=== PATIENT | male | born 1945 | race Caucasian/White ===

== ENCOUNTER → 2016-08-04 | Day surgery (SDC) | payer OTHER, MEDICARE ==
[2016-07-17 08:56] VITALS: Ht 180.3 cm; Wt 101.4 kg
[~2016-08-04] VITALS: Ht 180.3 cm; Wt 101.4 kg
[~2016-08-04] MED LIST: 500ML BSS 0.3ML EPI 1:1000PF IRRIG ONE; ACETAMINOPHEN 325 MG TAB PO PRN; AMVISC PLUS 0.8ML SYRINGE INT OCU ONE; ASPCH81X PO; ATROPINE SULFATE 0.1 MG/ML 5ML SYR IV PRN; B-COTAB18 PO; BROM0.07 OPR; BSS FLUSH ONE; CHOL2000 PO; CLOP1TAB15 PO; COEN100C11 PO; EpHEDrine SULFATE INJ 50 MG/ML AMP IV PRN; EpINEphrine INJ 1MG/ML AMP 1 MG/ML AMP ONE; FENTANYL CITRATE INJ 50 MCG/1 ML 2 ML VIAL IV PRN; FLUMAZENIL 0.1 MG/1 ML 10 ML VIAL IV PRN; HYDROmorphone INJ 2 MG/ML SYR/VIAL IV PRN; ISS/10 PO; LABETALOL HCL IV 5 MG/ML 20ML IV PRN; LACTATED RINGER'S 1000ML 500 ML IV SCH; LEVO100T7 PO; LIDOCAINE 3.5% OPH GEL PER APPLICATION CHARGE ONE; LIDOCAINE HCL 1% MPF 2 ML VIAL ONE; MAGN1CAP2 PO; MEPERIDINE HCL 25 MG/ML CARP IV PRN; METO-217 PO; MIDAZOLAM HCL 1 MG/ML 2ML VIAL ONE; MULT-506 PO; NALOXONE HCL 0.4 MG/1 ML VIAL/CARP IV PRN; NTRGSL/4 UT; OCUCOAT 1 ML SOLN IO ONE; OMEG12006 PO; ONDANSETRON INJ 2 MG/ML 2 ML VIAL IV PRN; PHENYLEPHRINE 100MCG/ML 5ML SYR IV PRN; PHENYLEPHRINE HCL 10% OP SOLN PER DROP CHARGE OPR SCH; POVIDONE-IODINE OP SOLN 30 ML BTL ONE; PRED1SUS17 OPR; PROPARACAINE 0.5% OP SOLN PER DROP CHARGE OPR SCH; TOBRAMYCIN/DEXAMETHASONE OPH OINT PER APPLN CHARGE ONE; VITACAP36 PO
[2016-08-04] MEDS: PHENYLEPHRINE HCL 2.5% OP SOLN PER DROP CHARGE OPR SCH ×2 (06:41→06:52)
[2016-08-04] MEDS: TROPICAMIDE 1% OP SOLN PER DROP CHARGE OPR SCH ×2 (06:48→06:53)
[2016-08-04] MEDS: CYCLOPENTOLATE HCL 1% OP SOLN PER DROP CHARGE OPR SCH ×2 (06:49→06:54)
[2016-08-04] MEDS: KETOROLAC 0.5% OP SOLN PER DROP CHARGE OPR SCH ×2 (06:50→06:55)
[2016-08-04] MEDS: GATIFLOXACIN OP SOLN PER DROP CHARGE OPR SCH ×2 (06:51→07:01)
--- NOTE | 2016-08-04 06:55 | History & Physical Bridge - [place] ---
H&P Re-Evaluation Bridge Note: I have examined the patient, reviewed the History & Physical and in the interval since the performance of the History & Physical I have noted the following changes of clinical significance: No changes noted
[2016-08-04 07:44] VITALS: TEMP 36.8
--- NOTE | 2016-08-04 07:45 | Discharge Instructions-SurgCtr ---
Discharge Instructions Visit Reason for Visit: Cataract Right Eye Discharge Discharge Diagnosis / Problem: cataract Discharge Goals Goal(s): Improve function Activity Recommendations Activity Limitations: per Instructions/Follow-up section Anesthesia . Post Anesthesia Instructions: If you have had General Anesthesia or IV Sedation: * Do not drive today. * Resume driving when surgeon permits. * Do not make important decisions or sign legal documents today. * Call surgeon for: 1. Temperature elevations greater than 101 degrees F. 2. Uncontrollable pain. 3. Excessive bleeding. 4. Persistent nausea and vomiting. 5. Medication intolerance (nausea, vomiting or rash). * For nausea and vomiting use only clear liquids such as: tea, soda, bouillon until nausea subsides, then gradually increase diet as tolerated. * If you have any concerns or questions, call your surgeon's office. If physician is unavailable and it is an emergency, call 911 or go to the nearest emergency room. . Instructions / Follow-Up Instructions / Follow-Up ACTIVITY RECOMMENDATIONS: * No strenuous lifting, jogging or running for 4 days * No swimming or yard work for 1 week. * Limited bending is permitted, such as putting on shoes. RETURN TO SCHOOL/WORK: No work until seen by physician in office. MEDICATIONS: Resume previous medications unless instructed otherwise by your surgeon. This includes eye drops for glaucoma. Zymaxid/Gatifloxacin (clemente cap) - one drop every 2 hours until bedtime Nevanac/Ilevro/Prolensa/Ketorolac (mckeon cap) - one drop every 4 hours until bedtime Prednisolone (white/pink cap, SHAKE WELL) - one drop every 2 hours until bedtime Starting tomorrow - all 3 drops every 4 hours until seen in the office Optive drops - as needed for discomfort SPECIAL CARE INSTRUCTIONS: * Wear eyeshield when sleeping, for four nights. * You may wear your own glasses or sunglasses while awake. * You may read or watch TV * You may shower and wash your face, but be gentle around the eye and pat dry. * Blurry vision and mild irritation are normal. * Call office if pain is more severe or vision becomes dark at . FOLLOW UP VISIT: Follow-up with Dr Hartmann tomorrow. Diet Recommendations Home Diet: resume previous diet Pending Studies Studies pending at discharge: no Medical Emergencies . Who to Call and When: Medical Emergencies: If at any time you feel your situation is an emergency, please call 911 immediately. . Non-Emergent Contact Non-Emergency issues call your: Wind Instrument Repairer . . "Provider Documentation" section prepared by Bhavin Hartmann.
--- NOTE | 2016-08-04 07:45 | [facility] Operative Report ---
Operative Report 1. PREOPERATIVE DIAGNOSIS: Cataract of the right eye. 2. POSTOPERATIVE DIAGNOSIS: Same. 3. PROCEDURE: Phacoemulsification with intraocular lens implantation of the right eye. SURGEON: Dr. Bhavin Hartmann. ANESTHESIA: Topical Lidocaine gel, 1% Non- Preserved intracameral Lidocaine, and monitored intravenous sedation. INDICATIONS FOR THE PROCEDURE: The patient is a 70 - year-old male with a history of cataract of the right eye causing significant visual impairment. The details of the proposed procedure were explained to the patient who asked appropriate questions and following discussion of all risks, benefits and alternatives agreed to have the procedure done. 4. OPERATION AND FINDINGS: DESCRIPTION OF PROCEDURE: After informed consent was obtained, the patient was brought to the Operating Room at the [facility]. The patient was placed in a supine position and then the right eye was prepped and draped in the usual sterile fashion for intraocular surgery. A drop of topical Lidocaine gel was placed in the operative eye. A wire lid speculum was then placed in the fornices. A corneal paracentesis was then created temporally. The Non-Preserved Lidocaine was then instilled into the anterior chamber. The anterior chamber was then pressurized with viscoelastic. A 2.0 mm clear corneal incision was then created temporally. A cystotome was inserted into the anterior chamber and used to create a tear in the anterior lens capsule. This capsular tear was then used to create a small flap and the flap was dragged in a counterclockwise direction in order to create a continuous curvilinear capsulorrhexis. Hydrodissection was accomplished with balanced salt solution. Phacoemulsification of the lens nucleus was then performed in a standard [id number] technique. The phaco time was 22 seconds with an average power of 7 %. The remaining cortical material was removed using irrigation aspiration. The capsular bag was then filled with viscoelastic. A Bausch & Lomb MI60L +18.5 diopters lens was then loaded into the injector and injected into the capsular bag. The remaining viscoelastic was removed with the irrigation aspiration handpiece. The wound was hydrated and then checked and found to be watertight. The intraocular pressure was checked and found to be adequate. The wire lid speculum was removed and the patient's face was cleaned and dried. TobraDex ointment was placed in the inferior fornix. The patient was discharged to the Recovery Room having tolerated the procedure well. There were no complications. The patient will be seen tomorrow in the office for follow-up. I attest to the content of the Intraoperative Record and any orders documented therein. Any exceptions are noted below.
--- NOTE | 2016-08-04 08:03 | Anesthesia Progress Nt - [facility] ---
Anesthesia Post Op Note Date & Time Aug 04, 2016 at 08:03 Vital Signs Pain Intensity: 0 Vital Signs Past 12 Hours Date Time Temp Pulse Resp B/P Pulse Ox O2 Delivery O2 Flow Rate FiO2 08/04/16 07:44 36.8 58 16 118/76 96 Room Air 08/04/16 06:33 36.5 56 16 103/66 96 Room Air Notes Mental Status: alert / awake / arousable, participated in evaluation Pt Amnestic to Procedure: Yes Nausea / Vomiting: adequately controlled Pain: adequately controlled Airway Patency, RR, SpO2: stable & adequate BP & HR: stable & adequate Hydration State: stable & adequate Anesthetic Complications: no major complications apparent
[2016-08-04 08:15] VITALS: BP 120/77; PULSE 55; O2SAT 96
== END | disposition home or self-care (01) ==
LOC: X.SURG 06:21
PROVIDERS: ATTEND Ophthalmology
DX: H26.9 Unspecified cataract (principal); Z95.1 Presence of aortocoronary bypass graft; C44.91 Basal cell carcinoma of skin, unspecified

== ENCOUNTER → 2016-09-08 | Day surgery (SDC) | payer OTHER, MEDICARE ==
[2016-08-20 12:05] VITALS: Ht 180.3 cm; Wt 101.4 kg
[~2016-09-08] VITALS: Ht 180.3 cm; Wt 101.4 kg
[~2016-09-08] MED LIST changes: +PHENYLEPHRINE HCL 10% OP SOLN PER DROP CHARGE OPL SCH; -PHENYLEPHRINE HCL 10% OP SOLN PER DROP CHARGE OPR SCH; +PROPARACAINE 0.5% OP SOLN PER DROP CHARGE OPL SCH; -PROPARACAINE 0.5% OP SOLN PER DROP CHARGE OPR SCH
[2016-09-08] MEDS: PHENYLEPHRINE HCL 2.5% OP SOLN PER DROP CHARGE OPL SCH ×2 (06:46→07:11)
[2016-09-08] MEDS: TROPICAMIDE 1% OP SOLN PER DROP CHARGE OPL SCH ×2 (06:47→07:12)
[2016-09-08] MEDS: CYCLOPENTOLATE HCL 1% OP SOLN PER DROP CHARGE OPL SCH ×2 (06:48→07:13)
[2016-09-08] MEDS: KETOROLAC 0.5% OP SOLN PER DROP CHARGE OPL SCH ×2 (06:49→07:14)
[2016-09-08] MEDS: GATIFLOXACIN OP SOLN PER DROP CHARGE OPL SCH ×2 (06:50→07:15)
--- NOTE | 2016-09-08 07:00 | History & Physical Bridge - [place] ---
H&P Re-Evaluation Bridge Note: I have examined the patient, reviewed the History & Physical and in the interval since the performance of the History & Physical I have noted the following changes of clinical significance: Diagnosis: Left Cataract Procedure: Left Cataract Removal with Lens Implant No changes noted
--- NOTE | 2016-09-08 07:49 | Discharge Instructions-SurgCtr ---
Discharge Instructions Date of Service Sep 08, 2016. Visit Reason for Visit: Cataract Left Eye Discharge Discharge Diagnosis / Problem: cataract Discharge Goals Goal(s): Improve function Activity Recommendations Activity Limitations: per Instructions/Follow-up section Anesthesia . Post Anesthesia Instructions: If you have had General Anesthesia or IV Sedation: * Do not drive today. * Resume driving when surgeon permits. * Do not make important decisions or sign legal documents today. * Call surgeon for: 1. Temperature elevations greater than 101 degrees F. 2. Uncontrollable pain. 3. Excessive bleeding. 4. Persistent nausea and vomiting. 5. Medication intolerance (nausea, vomiting or rash). * For nausea and vomiting use only clear liquids such as: tea, soda, bouillon until nausea subsides, then gradually increase diet as tolerated. * If you have any concerns or questions, call your surgeon's office. If physician is unavailable and it is an emergency, call 911 or go to the nearest emergency room. . Instructions / Follow-Up Instructions / Follow-Up ACTIVITY RECOMMENDATIONS: * No strenuous lifting, jogging or running for 4 days * No swimming or yard work for 1 week. * Limited bending is permitted, such as putting on shoes. RETURN TO SCHOOL/WORK: No work until seen by physician in office. MEDICATIONS: Resume previous medications unless instructed otherwise by your surgeon. This includes eye drops for glaucoma. Zymaxid/Gatifloxacin (clemente cap) - one drop every 2 hours until bedtime Nevanac/Ilevro/Prolensa/Ketorolac (mckeon cap) - one drop every 4 hours until bedtime Prednisolone (white/pink cap, SHAKE WELL) - one drop every 2 hours until bedtime Starting tomorrow - all 3 drops every 4 hours until seen in the office Optive drops - as needed for discomfort SPECIAL CARE INSTRUCTIONS: * Wear eyeshield when sleeping, for four nights. * You may wear your own glasses or sunglasses while awake. * You may read or watch TV * You may shower and wash your face, but be gentle around the eye and pat dry. * Blurry vision and mild irritation are normal. * Call office if pain is more severe or vision becomes dark at . FOLLOW UP VISIT: Follow-up with Dr Hartmann tomorrow. Diet Recommendations Home Diet: resume previous diet Procedures Procedures Performed: Left Cataract Phacoemulsification With Intraocular Lens Implant Pending Studies Studies pending at discharge: no Medical Emergencies . Who to Call and When: Medical Emergencies: If at any time you feel your situation is an emergency, please call 911 immediately. . Non-Emergent Contact Non-Emergency issues call your: Communications Coordinator . . "Provider Documentation" section prepared by Bhavin Hartmann.
--- NOTE | 2016-09-08 07:50 | [facility] Operative Report ---
Operative Report Date of Service Sep 08, 2016. Operative Report 1. PREOPERATIVE DIAGNOSIS: Cataract of the left eye. 2. POSTOPERATIVE DIAGNOSIS: Same. 3. PROCEDURE: Phacoemulsification with intraocular lens implantation of the left eye. SURGEON: Dr. Bhavin Hartmann. ANESTHESIA: Topical Lidocaine gel, 1% Non- Preserved intracameral Lidocaine, and monitored intravenous sedation. INDICATIONS FOR THE PROCEDURE: The patient is a 70 - year-old male with a history of cataract of the left eye causing significant visual impairment. The details of the proposed procedure were explained to the patient who asked appropriate questions and following discussion of all risks, benefits and alternatives agreed to have the procedure done. 4. OPERATION AND FINDINGS: DESCRIPTION OF PROCEDURE: After informed consent was obtained, the patient was brought to the Operating Room at the [facility]. The patient was placed in a supine position and then the left eye was prepped and draped in the usual sterile fashion for intraocular surgery. A drop of topical Lidocaine gel was placed in the operative eye. A wire lid speculum was then placed in the fornices. A corneal paracentesis was then created temporally. The Non-Preserved Lidocaine was then instilled into the anterior chamber. The anterior chamber was then pressurized with viscoelastic. A 2.0 mm clear corneal incision was then created temporally. A cystotome was inserted into the anterior chamber and used to create a tear in the anterior lens capsule. This capsular tear was then used to create a small flap and the flap was dragged in a counterclockwise direction in order to create a continuous curvilinear capsulorrhexis. Hydrodissection was accomplished with balanced salt solution. Phacoemulsification of the lens nucleus was then performed in a standard [id number]-[id number] technique. The phaco time was 23 seconds with an average power of 8 %. The remaining cortical material was removed using irrigation aspiration. The capsular bag was then filled with viscoelastic. A Bausch & Lomb MI60L +17.5 diopters lens was then loaded into the injector and injected into the capsular bag. The remaining viscoelastic was removed with the irrigation aspiration handpiece. The wound was hydrated and then checked and found to be watertight. The intraocular pressure was checked and found to be adequate. The wire lid speculum was removed and the patient's face was cleaned and dried. TobraDex ointment was placed in the inferior fornix. The patient was discharged to the Recovery Room having tolerated the procedure well. There were no complications. The patient will be seen tomorrow in the office for follow-up. I attest to the content of the Intraoperative Record and any orders documented therein. Any exceptions are noted below.
[2016-09-08 07:53] VITALS: TEMP 36.8
--- NOTE | 2016-09-08 08:05 | Anesthesia Progress Nt - [facility] ---
Anesthesia Post Op Note Date & Time Sep 08, 2016 at 08:05 Vital Signs Pain Intensity: 0 Vital Signs Past 12 Hours Date Time Temp Pulse Resp B/P Pulse Ox O2 Delivery O2 Flow Rate FiO2 09/08/16 07:53 36.8 52 16 112/71 96 Room Air 09/08/16 06:31 36.7 52 16 112/70 95 Room Air Notes Mental Status: alert / awake / arousable, participated in evaluation Pt Amnestic to Procedure: Yes Nausea / Vomiting: adequately controlled Pain: adequately controlled Airway Patency, RR, SpO2: stable & adequate BP & HR: stable & adequate Hydration State: stable & adequate Anesthetic Complications: no major complications apparent
[2016-09-08 08:26] VITALS: BP 123/75; PULSE 55; O2SAT 97
== END | disposition home or self-care (01) ==
LOC: X.SURG 06:23
PROVIDERS: ATTEND Ophthalmology
DX: H26.9 Unspecified cataract (principal); I10 Essential (primary) hypertension; K21.9 Gastro-esophageal reflux disease without esophagitis; I25.2 Old myocardial infarction; Z98.42 Cataract extraction status, left eye; Z68.31 Body mass index [BMI] 31.0-31.9, adult; Z95.1 Presence of aortocoronary bypass graft; Z87.891 Personal history of nicotine dependence; Z88.0 Allergy status to penicillin; Z79.02 Long term (current) use of antithrombotics/antiplatelets

== ENCOUNTER 2016-10-19 18:55 | Emergency (ER) | payer OTHER, MEDICARE ==
[~2016-10-19] VITALS: Ht 180.3 cm; Wt 103.3 kg
[~2016-10-19 18:55] MED LIST changes: -500ML BSS 0.3ML EPI 1:1000PF IRRIG ONE; -ACETAMINOPHEN 325 MG TAB PO PRN; -AMVISC PLUS 0.8ML SYRINGE INT OCU ONE; -ATROPINE SULFATE 0.1 MG/ML 5ML SYR IV PRN; -BSS FLUSH ONE; -EpHEDrine SULFATE INJ 50 MG/ML AMP IV PRN; -EpINEphrine INJ 1MG/ML AMP 1 MG/ML AMP ONE; -FENTANYL CITRATE INJ 50 MCG/1 ML 2 ML VIAL IV PRN; -FLUMAZENIL 0.1 MG/1 ML 10 ML VIAL IV PRN; -HYDROmorphone INJ 2 MG/ML SYR/VIAL IV PRN; -LABETALOL HCL IV 5 MG/ML 20ML IV PRN; -LACTATED RINGER'S 1000ML 500 ML IV SCH; -LIDOCAINE 3.5% OPH GEL PER APPLICATION CHARGE ONE; -LIDOCAINE HCL 1% MPF 2 ML VIAL ONE; -MEPERIDINE HCL 25 MG/ML CARP IV PRN; -MIDAZOLAM HCL 1 MG/ML 2ML VIAL ONE; -NALOXONE HCL 0.4 MG/1 ML VIAL/CARP IV PRN; -OCUCOAT 1 ML SOLN IO ONE; -ONDANSETRON INJ 2 MG/ML 2 ML VIAL IV PRN; -PHENYLEPHRINE 100MCG/ML 5ML SYR IV PRN; -PHENYLEPHRINE HCL 10% OP SOLN PER DROP CHARGE OPL SCH; -POVIDONE-IODINE OP SOLN 30 ML BTL ONE; -PROPARACAINE 0.5% OP SOLN PER DROP CHARGE OPL SCH; -TOBRAMYCIN/DEXAMETHASONE OPH OINT PER APPLN CHARGE ONE
[2016-10-19 19:00] VITALS: Ht 180.3 cm; Wt 103.3 kg
[2016-10-19 19:50] LABS: PROTHROMBIN TIME (PATIENT) 10.7 SECONDS (9.0-12.0)
--- NOTE | 2016-10-19 20:08 | DIAGNOSTIC IMAGING REPORT ---
Venous Doppler right leg RIGHT VENOUS DOPP LOWER EXT UNILAT CLINICAL HISTORY: lower leg pain/recent trauma Right TECHNIQUE: Venous Doppler COMPARISON STUDY: None FINDINGS: Normal study IMPRESSION: Normal study Electronically signed by: Stone Ziegler M.D. 10/19/2016 8:06 PM Dictated Date/Time: 10/19/2016 8:06 PM
--- NOTE | 2016-10-19 20:13 | EMERGENCY ROOM VISIT NOTE ---
ED Visit Note First contact with patient: 19:13 I have personally seen and evaluated the patient with the physician family law legal assistant. I agree with the diagnostic/management decisions and have personally been involved in these decisions and agree with the diagnosis.
--- NOTE | 2016-10-19 20:17 | EMERGENCY ROOM VISIT NOTE ---
History First contact with patient: 19:13 Chief Complaint: LEG PAIN,LEG INJURY Stated Complaint: R LEG PAIN FROM FALL, HOT SPOT History of Present Illness The patient is a 70 year old male who presents to the Emergency Room with complaints of right lower anterior leg pain. The patient states that he fell at [facility] on October 07 and landed on his right side. He states he had keys in his pocket which gave him a large contusion over the lateral aspect of his right upper leg. He then got black and blue down the back of his leg. He had seen his family doctor for this injury. He was instructed if he gets any specific point of pain or redness or increased temperature to touch to come back to see the family physician or to go to the emergency room. The patient states today he noticed a small lump on the anterior aspect of his lower leg which is slightly increased temperature to touch. It is also slightly red. He denies any posterior lower leg pain. The patient is currently on Plavix. He also takes an aspirin daily. Review of Systems 10 system review was performed and was negative unless stated otherwise history of present illness. Past Medical/Surgical History Cardiac stents, failed coronary bypass, kidney stones, cholecystectomy, hernia repair, left knee surgery, appendectomy, retinal tear in the right eye, retinal tear in the left eye, basal cell carcinoma, bilateral cataract surgery Social History Smoking Status: Former Smoker Marital Status: Housing Status: lives with family Current/Historical Medications Scheduled Aspirin (Aspirin Chewable), 81 MG PO HS B-Complex Vitamins (Vitamin B Complex), 1 TAB PO QAM Bromfenac Sodium (Ophth) (Prolensa), 1 DROP OPR DAILY Cholecalciferol (Vitamin D3), 1 CAP PO QAM Clopidogrel (Plavix), 75 MG PO QAM Coenzyme Q10 (Ubidecarenone) (Coq-10), 1 CAP PO QAM Isosorbide Dinitrate (Isordil), 10 MG PO TID Levothyroxine Sodium (Levothyroxine Sodium), 1 TAB PO QAM Magnesium Oxide (Mg Supplement (Magnesium), 1 CAP PO QAM Metoprolol Succinate (Toprol Xl), 2 TAB PO QPM Multivitamin (Multivitamin), 1 TAB PO QAM Nitroglycerin (Nitrostat), 0.4 MG UT PRN [place]-3 Fatty Acids ([place] 3), 2 CAP PO QAM Prednisolone Acetate (Ophth) (Prednisolone Acetate), 1 DROP OPR BID Vitamin E (E-200), 1 CAP PO QAM Allergies Coded Allergies: Penicillins (Verified Allergy, Mild, HIVES, 10/19/16) Physical Exam Vital Signs Date Time Temp Pulse Resp B/P Pulse Ox O2 Delivery O2 Flow Rate FiO2 10/19/16 19:00 36.5 81 18 112/73 95 Room Air Physical Exam GENERAL: 70-year-old white male appears in no acute distress. MENTAL Status: Alert and oriented 3. NECK: Supple, no lymphadenopathy noted. No carotid bruits noted. LUNGS: Clear auscultation without wheezes rales or rhonchi. CARDIAC: Regular rate and rhythm without murmur. Pulses is full and equal throughout. RIGHT LEG: The patient has diffuse ecchymosis noted over the upper lateral aspect as well as the medial and posterior distal aspect of the upper leg. The patient has visible varicosities of the lower leg. There is a larger varicosity over the anterior aspect which is the area of concern. There is slight increased temperature to touch and only minimal erythema. The calf is nontender. No palpable cords noted. Negative Homans. Medical Decision & Procedures ER Provider Diagnostic Interpretation: Venous Doppler right leg RIGHT VENOUS DOPP LOWER EXT UNILAT CLINICAL HISTORY: lower leg pain/recent trauma Right TECHNIQUE: Venous Doppler COMPARISON STUDY: None FINDINGS: Normal study IMPRESSION: Normal study Electronically signed by: Stone Ziegler M.D. 10/19/2016 8:06 PM Laboratory Results Test 10/19/16 19:27 Prothrombin Time 10.7 SECONDS (9.0-12.0) Prothromb Time International Ratio 1.0 (0.9-1.1) Activated Partial Thromboplast Time 26.8 SECONDS (21.0-31.0) Partial Thromboplastin Ratio 1.0 ED Course The patient was evaluated. The patient's EMR medication list was reviewed. Coags were ordered. Ultrasound of the right lower extremity was ordered and interpreted by the radiologist as above without any evidence of DVT or superficial phlebitis. Coags were normal. The patient was independently evaluated by Dr. Barrow who agrees with treatment plan. The patient was informed of the findings and discharged home in stable condition.. Medical Decision Differential diagnosis include Varicose pains, superficial phlebitis, DVT, cellulitis Impression Primary Impression: Varicose vein of leg Additional Impression: Pain in right leg Departure Information Dispostion Home / Self-Care Condition GOOD Referrals Frank Mccormack M.D. (PCP) Forms HOME CARE DOCUMENTATION FORM, IMPORTANT VISIT INFORMATION Patient Instructions My [facility] Additional Instructions Recommend Tylenol as needed for pain. Keep leg elevated whenever possible over the next 24 hours. May try ice initially for the first 24 hours then switch over to moist heat. If symptoms persist or worsen, follow-up with your family doctor. Problem Qualifiers
[2016-10-19 20:26] VITALS: BP 108/71; PULSE 78; TEMP 36.5; O2SAT 95
== END 2016-10-19 20:27 | disposition home or self-care (01) ==
LOC: C.EDB 18:56 → C.EDD 20:27
DX: I83.90 Asymptomatic varicose veins of unspecified lower extremity (principal); M79.604 Pain in right leg; W19.XXXA Unspecified fall, initial encounter; Y92.512 Supermarket, store or market as the place of occurrence of the external cause; Z87.442 Personal history of urinary calculi; Z85.828 Personal history of other malignant neoplasm of skin; Z87.891 Personal history of nicotine dependence; Z79.82 Long term (current) use of aspirin; Z79.02 Long term (current) use of antithrombotics/antiplatelets; Z79.899 Other long term (current) drug therapy

== ENCOUNTER 2017-06-19 15:31 | Emergency (ER) | payer OTHER, MEDICARE ==
[~2017-06-19] VITALS: Ht 180.3 cm; Wt 100.7 kg
[2017-06-19 15:36] VITALS: TEMP 37.6; Ht 180.3 cm; Wt 100.7 kg
[2017-06-19] MEDS ORDERED: ALBUT/IPRATROP 3MG/0.5MG NEB 3 ML VIAL INH STA (15:48)
[2017-06-19 16:25] LABS: BASO % 0.3 %; BASO ABS # 0.02 K/uL (0-0.2); EOS ABS # 0.06 K/uL (0-0.5); HEMATOCRIT 47.2 % (42-52); HEMOGLOBIN 16.7 g/dL (14.0-18.0); IG# 0.02 K/uL (0.00-0.02); LYMPH ABS # 0.76 K/uL (1.2-3.4); MEAN CELL VOLUME 88.9 fL (80-100); MEAN CORPUSCULAR HEMOGLOBIN 31.5 pg (25-34); MEAN CORPUSCULAR HGB CONC 35.4 g/dl (32-36); MEAN PLATELET VOLUME 9.1 fL (7.4-10.4); MONO % 14.6 %; MONO ABS # 0.85 K/uL (0.11-0.59); NEUT % 70.8 %; NEUT ABS # 4.13 K/uL (1.4-6.5); PLATELET COUNT 117 K/uL (130-400); RED CELL DISTRIBUTION WIDTH CV 13.1 % (11.5-14.5); RED CELL DISTRIBUTION WIDTH SD 42.5 fL (36.4-46.3); WHITE BLOOD COUNT 5.84 K/uL (4.8-10.8)
[2017-06-19 16:36] LABS: PTT PATIENT 29.7 SECONDS (21.0-31.0)
--- NOTE | 2017-06-19 16:42 | DIAGNOSTIC IMAGING REPORT ---
CHEST 2 VIEWS ROUTINE CLINICAL HISTORY: Cough. COMPARISON STUDY: 01/01/2008 FINDINGS: There are postsurgical changes of a midline sternotomy. There is no failure. There is no focal pulmonary consolidation. There are no pleural effusions.[ IMPRESSION: No active disease in the chest. Electronically signed by: Dyllan Cobian M.D. 06/19/2017 4:41 PM Dictated Date/Time: 06/19/2017 4:41 PM
[2017-06-19 16:47] LABS: CALCIUM 8.7 mg/dl (8.5-10.1); CREATININE 1.21 mg/dl (0.60-1.40); POTASSIUM 3.9 mmol/L (3.5-5.1)
[2017-06-19 16:49] LABS: INFLUENZA B ANTIGEN Neg for Influ B (NEG)
[2017-06-19] MEDS ORDERED: ALBUTEROL HFA 8 GM INHALER INH ONE (17:30)
[2017-06-19 17:31] VITALS: BP 122/69; PULSE 94; O2SAT 94
[2017-06-19 17:36] LABS: INFLUENZA A PCR Neg for Influ A (NEG); INFLUENZA B PCR Neg for Influ B (NEG)
--- NOTE | 2017-06-20 13:45 | EMERGENCY ROOM VISIT NOTE ---
History Report prepared by Lili: Mk Jones Under the Supervision of: Dr. Farncis Elizabeth M.D. First contact with patient: 15:40 Chief Complaint: CONGESTION Stated Complaint: HEAD & CHEST CONGESTION, SORE THROAT, COUGH History of Present Illness The patient is a 71 year old male who presents to the Emergency Room with complaints of a cough that began yesterday. 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 Since yesterday, he has been experiencing sinus congestion, rhinorrhea, sore throat, and a cough. He notes that his chest feels congested, and he feels a burning chest pain whenever he coughs. He denies any shortness of breath, but notes that he is having an increased work of breathing secondary to his rhinorrhea. He denies any fevers, but did feel warm and sweaty this morning. He cannot take Advil because of his cardiac disease. Source of History: patient Onset: yesterday Position: other (Respiratory System) Symptom Intensity: moderate Quality: other (Cough) Timing: intermittent Associated Symptoms: + sorethroat, + chest pain (burning, only present with coughing), No fevers Note: He is experiencing sinus and chest congestion. He is also having an increased work of breathing. Review of Systems See HPI for pertinent positives & negatives. A total of 10 systems reviewed and were otherwise negative. 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 Social History Smoking Status: Former Smoker Smokeless Tobacco Use: No Drug Use: none Marital Status: Housing Status: lives with family Current/Historical Medications Scheduled Aspirin (Aspirin Chewable), 81 MG PO HS B-Complex Vitamins (Vitamin B Complex), 1 TAB PO QAM Cholecalciferol (Vitamin D3), 1 CAP PO QAM Clopidogrel (Plavix), 75 MG PO QAM Coenzyme Q10 (Ubidecarenone) (Coq-10), 1 CAP PO QAM Isosorbide Dinitrate (Isordil), 10 MG PO TID Levothyroxine Sodium (Levothyroxine Sodium), 1 TAB PO QAM Magnesium Oxide (Mg Supplement (Magnesium), 1 CAP PO QAM Metoprolol Succinate (Toprol Xl), 2 TAB PO QPM Multivitamin (Multivitamin), 1 TAB PO QAM Nitroglycerin (Nitrostat), 0.4 MG UT PRN Narrows-3 Fatty Acids ([place]arrows 3), 2 CAP PO QAM Vitamin E (E-200), 1 CAP PO QAM Allergies Coded Allergies: Penicillins (Verified Allergy, Mild, HIVES, 06/19/17) Physical Exam Vital Signs Date Time Temp Pulse Resp B/P (MAP) Pulse Ox O2 Delivery O2 Flow Rate FiO2 06/19/17 17:31 94 16 122/69 94 Room Air 06/19/17 16:02 83 06/19/17 16:00 100 Room Air 06/19/17 15:36 37.6 85 18 119/79 100 Room Air Physical Exam Constitutional: Vital signs reviewed. Eyes: Pupils are equal round reactive to light. Conjunctiva are noninjected. ENT: Pharynx reveals mild erythema without exudates. Mucous membranes are moist. Neck supple without meningeal signs. Respiratory: Scattered wheezes bilaterally. Breath sounds are equal bilaterally. Cardiovascular: Regular rate and rhythm. No rubs or gallops. GI: Soft, nondistended and nontender. Bowel sounds are present. Musculoskeletal: No peripheral edema. No lower extremity tenderness. Integumentary: No cyanosis. Neurological: The patient is awake and alert. No focal deficits other than hearing deficit. Psychiatric: Normal affect. Medical Decision & Procedures ER Provider Diagnostic Interpretation: Radiology results as stated below per my review and the radiologist's interpretation: CHEST 2 VIEWS ROUTINE CLINICAL HISTORY: Cough. COMPARISON STUDY: 01/01/2008 FINDINGS: There are postsurgical changes of a midline sternotomy. There is no failure. There is no focal pulmonary consolidation. There are no pleural effusions.[ IMPRESSION: No active disease in the chest. Electronically signed by: Dyllan Cobian M.D. 06/19/2017 4:41 PM Dictated Date/Time: 06/19/2017 4:41 PM Laboratory Results 06/19/17 16:01 Red Blood Count 5.31, Mean Corpuscular Volume 88.9, Mean Corpuscular Hemoglobin 31.5, Mean Corpuscular Hemoglobin Concent 35.4, Mean Platelet Volume 9.1, Neutrophils (%) (Auto) 70.8, Lymphocytes (%) (Auto) 13.0, Monocytes (%) (Auto) 14.6, Eosinophils (%) (Auto) 1.0, Basophils (%) (Auto) 0.3, Neutrophils # (Auto ) 4.13, Lymphocytes # (Auto) 0.76, Monocytes # (Auto) 0.85, Eosinophils # (Auto ) 0.06, Basophils # (Auto) 0.02 06/19/17 16:01 Test 06/19/17 16:01 06/19/17 16:10 White Blood Count 5.84 K/uL (4.8-10.8) Red Blood Count 5.31 M/uL (4.7-6.1) Hemoglobin 16.7 g/dL (14.0-18.0) Hematocrit 47.2 % (42-52) Mean Corpuscular Volume 88.9 fL (80-100) Mean Corpuscular Hemoglobin 31.5 pg (25-34) Mean Corpuscular Hemoglobin Concent 35.4 g/dl (32-36) Platelet Count 117 K/uL (130-400) Mean Platelet Volume 9.1 fL (7.4-10.4) Neutrophils (%) (Auto) 70.8 % Lymphocytes (%) (Auto) 13.0 % Monocytes (%) (Auto) 14.6 % Eosinophils (%) (Auto) 1.0 % Basophils (%) (Auto) 0.3 % Neutrophils # (Auto) 4.13 K/uL (1.4-6.5) Lymphocytes # (Auto) 0.76 K/uL (1.2-3.4) Monocytes # (Auto) 0.85 K/uL (0.11-0.59) Eosinophils # (Auto) 0.06 K/uL (0-0.5) Basophils # (Auto) 0.02 K/uL (0-0.2) RDW Standard Deviation 42.5 fL (36.4-46.3) RDW Coefficient of Variation 13.1 % (11.5-14.5) Immature Granulocyte % (Auto) 0.3 % Immature Granulocyte # (Auto) 0.02 K/uL (0.00-0.02) Prothrombin Time 10.8 SECONDS (9.0-12.0) Prothromb Time International Ratio 1.0 (0.9-1.1) Activated Partial Thromboplast Time 29.7 SECONDS (21.0-31.0) Partial Thromboplastin Ratio 1.1 Anion Gap 6.0 mmol/L (3-11) Est Creatinine Clear Calc Drug Dose 68.6 ml/min Estimated GFR () 69.9 Estimated GFR (Non- 60.3 BUN/Creatinine Ratio 15.0 (10-20) Calcium Level 8.7 mg/dl (8.5-10.1) Influenza Type A (RT-PCR) Neg for Influ A (NEG) Influenza Type A Antigen Neg for Influ A (NEG) Influenza Type B Antigen Neg for Influ B (NEG) Influenza Type B (RT-PCR) Neg for Influ B (NEG) Bedside Troponin I < 0.030 ng/ml (0-0.045) Laboratory results as reviewed by me. Medications Administered Medications (Trade) Dose Ordered Sig/Eliu Route Start Time Stop Time Status Last Admin Dose Admin Albuterol/ Ipratropium (Duoneb) 3 ml NOW STAT INH 06/19/17 15:48 06/19/17 15:49 DC 06/19/17 16:14 3 ML Albuterol (Ventolin Hfa Inhaler) 2 puffs NOW ONCE INH 06/19/17 17:30 06/19/17 17:31 DC 06/19/17 17:30 2 PUFFS ECG Indication: chest pain Rate (beats per minute): 80 Rhythm: normal sinus Findings: Q waves (Inferior), RBBB Comparison ECG Date: 2007, no recent available Change: RBBB is new, q-waves are old ED Course 1540: The patient was evaluated in room B10. A complete history and physical exam was performed. 1548: DuoNeb 3 ml INH 1717: Upon reexamination, the patient is no longer wheezing. He is feeling a lot better. We are waiting for his PCR influenza test. 1730: Ordered Albuterol 2 puffs INH 1745: Upon reevaluation, the patient appeared to have improvement of his symptoms. I discussed tonight's findings with him. He verbalized agreement of the treatment plan. He was discharged home. Medical Decision This is a 71-year-old male who presents with flulike symptoms. Differential diagnosis includes pneumonia, bronchitis, influenza, URI, pericarditis. I did perform a limited focused review of portions of the patient's old chart on the electronic medical record. The patient has had no recent pertinent visits to this hospital. I did evaluate the patient as noted above. IV access was established. The patient was placed on a continuous panel monitor. I did order and personally review the patient's 12-lead EKG and chest x-ray as described above. He has a right bundle branch block on 12 EKG. We do not have a more recent one to compare with. The last one available was in 2007. His chest x-ray does not demonstrate a pneumonia. I did order and review the patient's blood work as noted in the electronic medical record. Labs are unremarkable. His white blood cell count is not elevated. Rapid flu testing and PCR flu testing were negative. I did treat him with a DuoNeb. On reexamination he is feeling better and has no wheezing on examination. He was informed of his test results and discharged with a albuterol MDI. He was advised follow closely with his doctor. Medication Reconcilliation Current Medication List: was personally reviewed by me Blood Pressure Screening Patient's blood pressure: Normal blood pressure Blood pressure disposition: Did not require urgent referral Impression Primary Impression: Bronchitis with bronchospasm Additional Impression: Flu-like symptoms Scribe Attestation The scribe's documentation has been prepared under my direct and personally reviewed by me in its entirety. I confirm that the note above accurately reflects all work, treatment, procedures, and medical decision making performed by me. Departure Information Dispostion Home / Self-Care Referrals Frank Mccormack M.D. (PCP) Forms HOME CARE DOCUMENTATION FORM, IMPORTANT VISIT INFORMATION Patient Instructions My [facility] Additional Instructions You have been examined and treated today on an emergency basis only. This is not a substitute for, or an effort to provide, complete comprehensive medical care. It is impossible to recognize and treat all injuries or illnesses in a single emergency department visit. It is therefore important that you follow up closely with your physician. Call as soon as possible for an appointment. Return for worsening symptoms or if you develop fever over 101, vomiting, or any other concerning symptoms. Use the albuterol inhaler 2 puffs every 6 hours as needed for cough. Problem Qualifiers
== END 2017-06-19 17:48 | disposition home or self-care (01) ==
LOC: C.EDB 15:32
DX: J20.9 Acute bronchitis, unspecified (principal); J11.1 Influenza due to unidentified influenza virus with other respiratory manifestations; I45.10 Unspecified right bundle-branch block; I51.9 Heart disease, unspecified; Z95.1 Presence of aortocoronary bypass graft; Z87.891 Personal history of nicotine dependence; Z79.82 Long term (current) use of aspirin; Z79.899 Other long term (current) drug therapy; Z88.0 Allergy status to penicillin

== ENCOUNTER → 2018-01-20 | Outpatient (CLI) | payer OTHER, MEDICARE ==
[~2018-01-20] MED LIST changes: -BROM0.07 OPR; +IMDSR30 PO; -PRED1SUS17 OPR
[2018-01-20 11:06] LABS: BASO % 0.6 %; BASO ABS # 0.04 K/uL (0-0.2); EOS % 2.5 %; EOS ABS # 0.17 K/uL (0-0.5); HEMATOCRIT 46.2 % (42-52); HEMOGLOBIN 16.2 g/dL (14.0-18.0); IG# 0.02 K/uL (0.00-0.02); LYMPH % 25.4 %; LYMPH ABS # 1.75 K/uL (1.2-3.4); MEAN CELL VOLUME 88.7 fL (80-100); MEAN CORPUSCULAR HEMOGLOBIN 31.1 pg (25-34); MEAN CORPUSCULAR HGB CONC 35.1 g/dl (32-36); MEAN PLATELET VOLUME 9.3 fL (7.4-10.4); MONO % 6.8 %; MONO ABS # 0.47 K/uL (0.11-0.59); NEUT % 64.4 %; NEUT ABS # 4.43 K/uL (1.4-6.5); PLATELET COUNT 166 K/uL (130-400); RED CELL DISTRIBUTION WIDTH SD 42.2 fL (36.4-46.3); WHITE BLOOD COUNT 6.88 K/uL (4.8-10.8)
[2018-01-20 11:19] LABS: PTT PATIENT 28.5 SECONDS (21.0-31.0)
== END | disposition home or self-care (01) ==
LOC: C.LABBC 08:27
DX: Z01.818 Encounter for other preprocedural examination (principal)